=== PATIENT | male | born 1975 | race Caucasian/White ===

== ENCOUNTER 2017-12-08 05:30 | Inpatient (IN) ==
[2017-12-08] MEDS ORDERED: VANCOMYCIN INJ 1,000 MG in SODIUM CHLORIDE 0.9% 250 ML IV ONE (06:00)
[2017-12-08] MEDS ORDERED: FAMOTIDINE 20 MG TABLET PO ONE (06:00)
[2017-12-08] MEDS ORDERED: ceFAZolin 1,000 MG in SYRINGE 1 EACH IV ONE (06:00)
[2017-12-08] MEDS ORDERED: DIAZEPAM 5 MG TABLET PO ONE (06:00)
[2017-12-08] MEDS ORDERED: VANCOMYCIN 1,000 MG VIAL ONE (06:11)
[2017-12-08] MEDS ORDERED: FAMOTIDINE 20 MG TABLET ONE (06:11)
[2017-12-08] MEDS ORDERED: DIAZEPAM 5 MG TABLET ONE (06:11)
[2017-12-08] MEDS ORDERED: ceFAZolin 1,000 MG VIAL ONE (06:11)
[2017-12-08] MEDS: LACTATED RINGERS 1,000 ML IV SCH ×2 (06:45→08:21)
[2017-12-08] MEDS ORDERED: NALOXONE 0.4 MG/ML VIAL IV PRN (07:06)
[2017-12-08] MEDS ORDERED: ONDANSETRON 4 MG/2 ML VIAL IV PRN (07:06)
[2017-12-08] MEDS ORDERED: MAGNESIUM HYDROXIDE SUSP 30 ML UDCUP PO PRN (07:06)
[2017-12-08] MEDS ORDERED: BISACODYL 10 MG SUPP RECTAL PRN (07:06)
[2017-12-08] MEDS ORDERED: LACTULOSE 20 GM/30 ML UDCUP PO PRN (07:06)
[2017-12-08] MEDS ORDERED: DICLOFENAC POTASSIUM 50 MG TABLET PO PRN (07:10)
[2017-12-08] MEDS ORDERED: DEXTROSE 50% 25 GM/50 ML VIAL IV PRN (07:10)
[2017-12-08] MEDS ORDERED: GLUCAGON 1 MG VIAL IM PRN (07:10)
[2017-12-08] MEDS ORDERED: MORPHINE PCA 30 MG/30 ML SYRINGE IV SCH (07:30)
[2017-12-08] MEDS ORDERED: MORPHINE 2 MG/1 ML SYRINGE IV PRN ×2 (08:15→18:06)
[2017-12-08] MEDS ORDERED: DOPamine 800 MG/250 ML PREMIX IV ONE (08:55)
[2017-12-08] MEDS ORDERED: PROPOFOL 1,000 MG/100 ML BOTTLE IV SCH (09:00)
[2017-12-08] MEDS ORDERED: PROPOFOL 1,000 MG/100 ML BOTTLE IV ONE (09:00)
[2017-12-08 09:05] LABS: Apearance,Urine CLEAR (Clear); Bilirubin,Urine Negative (Negative); Blood, Urine Negative (Negative); Glucose,Urine (UA) 50 mg/dL (Negative); Ketones,Urine Negative (Negative); Mucus,Urine Occasional /LPF (Occasional); Nitrite,Urine Negative (Negative); Protein,Urine Negative; RBC,Urine 16 /HPF (0-4); Squamous Epithelial Cell,Urine Occasional /HPF (0-10); Urine Color Yellow (Yellow); Urine Specific Gravity 1.014 (1.001-1.035); Urine Urobilinogen < 2.0 EU/DL (0.2-1.0); WBC,Urine 3 /HPF (0-6)
[2017-12-08] MEDS ORDERED: MIDAZOLAM 2 MG/2 ML VIAL ONE ×2 (09:15→10:02)
[2017-12-08 09:29] LABS: Basophils # 0.1 10*3/uL (0.0-0.2); Basophils % 0.4 % (0.0-0.8); Eosinophils # 0.3 10*3/uL (0.0-0.87); Eosinophils % 2.6 % (0.00-10.9); Hemoglobin 12.5 GM/DL (14.0-18.0); Immature Granulocytes % 1.3 %; Immature Granulocytes Absolute 0.16 #; Lymphocytes # 1.5 10*3/uL (1.4-4.0); Lymphocytes % 12.4 % (21.2-54.2); Mean Corpuscular HGB Conc 32.1 GM/DL (32-36); Mean Corpuscular Hemoglobin 29 PG (27-34); Mean Corpuscular Volume 88.8 FL (87-102); Mean Platelet Volume 10.9 FL (9.6-12.0); Monocytes # 0.8 10*3/uL (0.11-0.8); Monocytes % 6.7 % (1.7-12.7); Neutrophils # 9.3 10*3/uL (1.4-7.4); Neutrophils % 76.6 % (38.7-73.9); Platelet Count 264 T/CUMM (130-400); Red Blood Count 4.39 MC/CUMM (3.8-5.5); Red Cell Distribution Width 13.2 % (9.3-17.3); White Blood Count 12.2 T/CUMM (4-12)
[2017-12-08] MEDS ORDERED: DOPamine 800 MG/250 ML PREMIX IV SCH (09:30)
[2017-12-08] MEDS: INSULIN REGULAR 100 UNIT/ML SUBCUT SCH ×4 (10:00→21:57)
[2017-12-08 10:02] LABS: Alanine Aminotransferase 80 U/L (16-61); Albumin 3.3 G/DL (3.4-5.0); Alkaline Phosphatase 46 U/L (45-117); Aspartate Amino Transferase 76 U/L (0-37); Blood Urea Nitrogen 26 MG/DL (7-18); Calcium 8.6 MG/DL (8.5-10.1); Glucose 189 MG/DL (74-106); Osmolality,Calculated 290.3 MOS/KG (273-304); Potassium 4.5 MMOL/L (3.5-5.1); Sodium 141 MMOL/L (136-145); Total Protein 6.2 G/DL (6.4-8.3)
[2017-12-08] MEDS ORDERED: EPINEPHrine 1 MG/10 ML SYRINGE ONE (10:02)
[2017-12-08] MEDS ORDERED: PROPOFOL 200 MG/20 ML VIAL IV ONE (10:02)
[2017-12-08] MEDS ORDERED: DESFLURANE 1 UNIT/15 MINUTE INH ONE (10:02)
[2017-12-08 10:03] LABS: Troponin I Only 0.047 NG/ML (0.00-0.045)
[2017-12-08] MEDS ORDERED: fentaNYL 100 MCG/2 ML VIAL ONE (10:03)
[2017-12-08] MEDS ORDERED: ONDANSETRON 4 MG/2 ML VIAL ONE (10:03)
[2017-12-08] MEDS ORDERED: ATROPINE 0.4 MG/1 ML VIAL ONE (10:03)
[2017-12-08] MEDS ORDERED: ROCURONIUM 100 MG/10 ML VIAL IV ONE (10:04)
[2017-12-08] MEDS ORDERED: PHENYLEPHRINE 1 MG/10 ML SYRINGE IV ONE (10:04)
[2017-12-08] MEDS ORDERED: GLYCOPYRROLATE 0.4 MG/2 ML VIAL ONE (10:04)
[2017-12-08] MEDS ORDERED: LACTATED RINGERS 1,000 ML IV ONE (10:04)
[2017-12-08] MEDS ORDERED: HEPARIN/NACL 0.9% 2 UNITS/ML 500 ML IV ONE (10:05)
[2017-12-08 10:07] LABS: ABG HCO3 22.8 MMOL/L (20-26); ABG PCO2 48.1 MM HG (35-48); ABG PH 7.317 (7.35-7.45); ABG TCO2 21.8 MMOL/L (23-27)
[2017-12-08] MEDS ORDERED: ePHEDrine 50 MG/ML AMP ONE (10:28)
[2017-12-08] MEDS: SODIUM CHLORIDE 0.9% 1,000 ML IV SCH ×2 (11:13→22:30)
[2017-12-08 11:56] LABS: ABG Base Excess -1.7 MMOL/L (-2.5-2.5); ABG HCO3 23.4 MMOL/L (20-26); ABG Oxygen Saturation 98.9 % (95-100); ABG PH 7.375 (7.35-7.45); ABG PO2 161.1 MM HG (80-95); ABG TCO2 24.7 MMOL/L (23-27)
[2017-12-08] MEDS: INSULIN DEGLUDEC 16 UNIT SUBCUT SCH (12:32)
[2017-12-08] MEDS: glipiZIDE 5 MG TABLET PO SCH ×2 (12:32→16:40)
[2017-12-08] MEDS: DOCUSATE SODIUM 100 MG CAPSULE PO SCH ×2 (12:33→21:20)
[2017-12-08] MEDS: ceFAZolin 2,000 MG in PREMIX 1 EACH IV SCH ×2 (13:57→21:23)
[2017-12-08] MEDS: MORPHINE 2 MG/1 ML SYRINGE IV PRN ×2 (14:00→17:17)
[2017-12-08] MEDS: FONDAPARINUX 2.5 MG/0.5 ML SYRINGE SUBCUT SCH (17:16)
[2017-12-08] MEDS ORDERED: MORPHINE 10 MG/1 ML VIAL IV PRN (18:06)
[2017-12-08] MEDS ORDERED: ACETAMINOPHEN 325 MG TABLET PO PRN (19:39)
[2017-12-08] MEDS ORDERED: LISINOPRIL/HCTZ 10-12.5 MG TABLET PO SCH (21:00)
[2017-12-08] MEDS: rOPINIRole 1 MG TABLET PO SCH (21:20)
[2017-12-08] MEDS: FENOFIBRATE 145 MG TABLET PO SCH (21:21)
[2017-12-08] MEDS: PROPRANOLOL LA 60 MG CAPSULE PO SCH (21:21)
[2017-12-09 04:48] LABS: Basophils % 0.2 % (0.0-0.8); Eosinophils # 0.1 10*3/uL (0.0-0.87); Eosinophils % 1.1 % (0.00-10.9); Hematocrit 34.6 VOL% (42.0-52.0); Hemoglobin 11.2 GM/DL (14.0-18.0); Immature Granulocytes % 0.6 %; Immature Granulocytes Absolute 0.06 #; Lymphocytes # 0.9 10*3/uL (1.4-4.0); Lymphocytes % 9.1 % (21.2-54.2); Mean Corpuscular HGB Conc 32.4 GM/DL (32-36); Mean Corpuscular Hemoglobin 29 PG (27-34); Mean Corpuscular Volume 88.3 FL (87-102); Monocytes # 1.1 10*3/uL (0.11-0.8); Monocytes % 10.9 % (1.7-12.7); Neutrophils # 8.1 10*3/uL (1.4-7.4); Neutrophils % 78.1 % (38.7-73.9); Platelet Count 213 T/CUMM (130-400); Red Blood Count 3.92 MC/CUMM (3.8-5.5); Red Cell Distribution Width 13.3 % (9.3-17.3); White Blood Count 10.3 T/CUMM (4-12)
[2017-12-09 05:19] LABS: Calcium 8.1 MG/DL (8.5-10.1); Osmolality,Calculated 284.3 MOS/KG (273-304); Potassium 4.2 MMOL/L (3.5-5.1)
[2017-12-09] MEDS: glipiZIDE 5 MG TABLET PO SCH ×2 (08:18→17:18)
[2017-12-09] MEDS: INSULIN REGULAR 100 UNIT/ML SUBCUT SCH ×4 (08:18→21:08)
[2017-12-09] MEDS: INSULIN DEGLUDEC 16 UNIT SUBCUT SCH (08:18)
[2017-12-09] MEDS: DOCUSATE SODIUM 100 MG CAPSULE PO SCH ×2 (08:57→21:05)
[2017-12-09 09:05] LABS: Troponin I Only 0.229 NG/ML (0.00-0.045)
[2017-12-09] MEDS: SODIUM CHLORIDE 0.9% 1,000 ML IV SCH ×3 (11:33→21:45)
[2017-12-09] MEDS: FONDAPARINUX 2.5 MG/0.5 ML SYRINGE SUBCUT SCH (17:18)
[2017-12-09] MEDS: rOPINIRole 1 MG TABLET PO SCH (21:05)
[2017-12-09] MEDS: PROPRANOLOL LA 60 MG CAPSULE PO SCH (21:05)
[2017-12-09] MEDS: FENOFIBRATE 145 MG TABLET PO SCH (21:06)
[2017-12-09] MEDS ORDERED: DEXTROSE 50% 25 GM/50 ML VIAL IV PRN (21:47)
[2017-12-09] MEDS ORDERED: GLUCAGON 1 MG VIAL IM PRN (21:47)
[2017-12-10] MEDS: SODIUM CHLORIDE 0.9% 1,000 ML IV SCH (03:13)
[2017-12-10 04:53] LABS: Basophils % 0.3 % (0.0-0.8); Eosinophils # 0.1 10*3/uL (0.0-0.87); Eosinophils % 1.6 % (0.00-10.9); Hematocrit 31.9 VOL% (42.0-52.0); Hemoglobin 10.4 GM/DL (14.0-18.0); Immature Granulocytes % 0.7 %; Immature Granulocytes Absolute 0.06 #; Lymphocytes # 1.1 10*3/uL (1.4-4.0); Lymphocytes % 11.8 % (21.2-54.2); Mean Corpuscular HGB Conc 32.6 GM/DL (32-36); Mean Corpuscular Hemoglobin 29 PG (27-34); Mean Corpuscular Volume 87.6 FL (87-102); Mean Platelet Volume 10.9 FL (9.6-12.0); Monocytes % 11.1 % (1.7-12.7); Neutrophils # 6.7 10*3/uL (1.4-7.4); Neutrophils % 74.5 % (38.7-73.9); Platelet Count 214 T/CUMM (130-400); Red Blood Count 3.64 MC/CUMM (3.8-5.5)
[2017-12-10] MEDS: INSULIN REGULAR 100 UNIT/ML SUBCUT SCH ×4 (08:50→20:47)
[2017-12-10] MEDS: INSULIN DEGLUDEC 16 UNIT SUBCUT SCH (08:51)
[2017-12-10] MEDS: DOCUSATE SODIUM 100 MG CAPSULE PO SCH ×2 (08:51→20:51)
[2017-12-10] MEDS: glipiZIDE 5 MG TABLET PO SCH ×2 (08:52→17:15)
[2017-12-10 13:20] LABS: Troponin I Only 0.035 NG/ML (0.00-0.045)
[2017-12-10 15:29] LABS: Troponin I Only 0.033 NG/ML (0.00-0.045)
[2017-12-10] MEDS: FONDAPARINUX 2.5 MG/0.5 ML SYRINGE SUBCUT SCH (17:17)
[2017-12-10] MEDS: FENOFIBRATE 145 MG TABLET PO SCH (20:50)
[2017-12-10] MEDS: PROPRANOLOL LA 60 MG CAPSULE PO SCH (20:51)
[2017-12-10] MEDS: rOPINIRole 1 MG TABLET PO SCH (20:51)
[2017-12-11 05:29] LABS: Calcium 7.8 MG/DL (8.5-10.1); Osmolality,Calculated 282.1 MOS/KG (273-304); Potassium 3.9 MMOL/L (3.5-5.1)
[2017-12-11 06:01] LABS: Risk Ratio 5.08; VLDL CHOLESTEROL 31.6 MG/DL
[2017-12-11] MEDS: DOCUSATE SODIUM 100 MG CAPSULE PO SCH (08:55)
[2017-12-11] MEDS: INSULIN REGULAR 100 UNIT/ML SUBCUT SCH ×2 (08:56→11:30)
[2017-12-11] MEDS: glipiZIDE 5 MG TABLET PO SCH (08:56)
[2017-12-11] MEDS: INSULIN DEGLUDEC 16 UNIT SUBCUT SCH (09:10)
[2017-12-11 11:32] VITALS: BP 154/72
== END 2017-12-11 12:45 | disposition home health service (06) | DRG 470 ==
LOC: N.SDSINP 05:30 → N.3E 07:51 → N.ICU 09:21 → N.3E 12-09 14:24
PROVIDERS: ADMIT Orthopaedic Surgery; ATTEND Orthopaedic Surgery

== ENCOUNTER 2018-08-12 05:53 | Inpatient (IN) ==
[2018-08-11 14:16] LABS: Basophils % 0.7 % (0.0-0.8); Eosinophils # 0.2 10*3/uL (0.0-0.87); Hematocrit 43.5 VOL% (42.0-52.0); Hemoglobin 14.3 GM/DL (14.0-18.0); Immature Granulocytes % 1.2 %; Immature Granulocytes Absolute 0.07 #; Lymphocytes # 1.2 10*3/uL (1.4-4.0); Lymphocytes % 19.6 % (21.2-54.2); Mean Corpuscular HGB Conc 32.9 GM/DL (32-36); Mean Corpuscular Hemoglobin 28 PG (27-34); Mean Corpuscular Volume 84.8 FL (87-102); Mean Platelet Volume 11.2 FL (9.6-12.0); Monocytes # 0.7 10*3/uL (0.11-0.8); Monocytes % 11.1 % (1.7-12.7); Neutrophils # 3.9 10*3/uL (1.4-7.4); Neutrophils % 64.4 % (38.7-73.9); Platelet Count 245 T/CUMM (130-400); Red Blood Count 5.13 MC/CUMM (3.8-5.5); Red Cell Distribution Width 13.2 % (9.3-17.3)
[2018-08-11 14:35] LABS: Albumin 3.8 G/DL (3.4-5.0); Bilirubin,Total 0.4 MG/DL (0.2-1.0); Calcium 9.2 MG/DL (8.5-10.1); Osmolality,Calculated 285.7 MOS/KG (273-304); Potassium 4.2 MMOL/L (3.5-5.1); Total Protein 7.6 G/DL (6.4-8.3)
[2018-08-12] MEDS ORDERED: cefTRIAXone 1,000 MG in SYRINGE 1 EACH IV ONE (06:00)
[2018-08-12] MEDS ORDERED: cefTRIAXone 1,000 MG VIAL ONE (07:03)
[2018-08-12] MEDS: LACTATED RINGERS 1,000 ML IV SCH ×2 (07:15→09:31)
[2018-08-12] MEDS ORDERED: FAMOTIDINE 20 MG TABLET PO ONE (07:26)
[2018-08-12] MEDS ORDERED: DIAZEPAM 5 MG TABLET PO ONE (07:26)
[2018-08-12] MEDS ORDERED: FAMOTIDINE 20 MG TABLET ONE (08:05)
[2018-08-12] MEDS ORDERED: DIAZEPAM 5 MG TABLET ONE (08:05)
[2018-08-12] MEDS ORDERED: TISSUE ADHESIVE 1 EACH APPLICATOR TOP ONE (10:49)
[2018-08-12] MEDS ORDERED: ROPIVACAINE 0.5% 30 ML VIAL ONE (10:49)
[2018-08-12] MEDS ORDERED: ONDANSETRON 4 MG/2 ML VIAL IV PRN (11:06)
[2018-08-12] MEDS ORDERED: GLUCAGON 1 MG VIAL IM PRN (11:15)
[2018-08-12] MEDS ORDERED: DEXTROSE 50% 25 GM/50 ML VIAL IV PRN (11:15)
[2018-08-12] MEDS ORDERED: MIDAZOLAM 2 MG/2 ML VIAL ONE (11:24)
[2018-08-12] MEDS ORDERED: fentaNYL 100 MCG/2 ML VIAL ONE (11:25)
[2018-08-12] MEDS ORDERED: PROPOFOL 200 MG/20 ML VIAL IV ONE (11:25)
[2018-08-12] MEDS ORDERED: SEVOFLURANE 1 UNIT/15 MINUTE INH ONE (11:25)
[2018-08-12] MEDS ORDERED: ONDANSETRON 4 MG/2 ML VIAL ONE (11:25)
[2018-08-12] MEDS ORDERED: SODIUM CHLORIDE 0.9% 250 ML IV ONE (11:26)
[2018-08-12] MEDS ORDERED: PHENYLEPHRINE 10 MG/1 ML VIAL IV ONE (11:26)
[2018-08-12] MEDS ORDERED: SUCCINYLCHOLINE 200 MG/10 ML VIAL ONE (11:26)
[2018-08-12] MEDS ORDERED: ROCURONIUM 100 MG/10 ML VIAL IV ONE (11:26)
[2018-08-12] MEDS ORDERED: PHENYLEPHRINE 1 MG/10 ML SYRINGE IV ONE (11:26)
[2018-08-12] MEDS ORDERED: LACTATED RINGERS 1,000 ML IV ONE (11:26)
[2018-08-12] MEDS ORDERED: ACETAMINOPHEN 1,000 MG/100 ML VIAL IV ONE (11:26)
[2018-08-12 11:38] LABS: Basophils # 0.1 10*3/uL (0.0-0.2); Basophils % 0.9 % (0.0-0.8); Eosinophils # 0.2 10*3/uL (0.0-0.87); Eosinophils % 2.4 % (0.00-10.9); Hematocrit 40.9 VOL% (42.0-52.0); Hemoglobin 12.8 GM/DL (14.0-18.0); Immature Granulocytes % 1.8 %; Immature Granulocytes Absolute 0.12 #; Lymphocytes % 14.9 % (21.2-54.2); Mean Corpuscular HGB Conc 31.3 GM/DL (32-36); Mean Corpuscular Hemoglobin 28 PG (27-34); Mean Platelet Volume 10.6 FL (9.6-12.0); Monocytes % 14.2 % (1.7-12.7); Neutrophils # 4.4 10*3/uL (1.4-7.4); Neutrophils % 65.8 % (38.7-73.9); Platelet Count 249 T/CUMM (130-400); Red Blood Count 4.65 MC/CUMM (3.8-5.5); Red Cell Distribution Width 13.4 % (9.3-17.3); White Blood Count 6.7 T/CUMM (4-12)
[2018-08-12] MEDS: HYDROmorphone 2 MG/1 ML VIAL IV PRN ×2 (12:28→21:06)
[2018-08-12] MEDS: INSULIN REGULAR 100 UNIT/ML SUBCUT SCH ×2 (12:28→16:47)
[2018-08-12] MEDS: ACETAMINOPHEN 325 MG TABLET PO SCH ×2 (12:29→16:47)
[2018-08-12] MEDS: SODIUM CHLORIDE 0.9% 1,000 ML IV SCH ×2 (12:29→21:30)
[2018-08-12 12:38] LABS: Apearance,Urine CLEAR (Clear); Bacteria,Urine Occasional /HPF (Few); Bilirubin,Urine Negative (Negative); Blood, Urine Small mg/dL (Negative); Glucose,Urine (UA) >=500 mg/dL (Negative); Ketones,Urine Negative (Negative); Nitrite,Urine Negative (Negative); Protein,Urine Negative; RBC,Urine 11 /HPF (0-4); Urine Color Straw (Yellow); Urine Specific Gravity 1.015 (1.001-1.035); Urine Urobilinogen < 2.0 EU/DL (0.2-1.0); WBC,Urine 1 /HPF (0-6)
[2018-08-12] MEDS: oxyCODONE/ACETAMINOPHEN 5-325 MG TABLET PO PRN (15:23)
[2018-08-12] MEDS ORDERED: INSULIN GLARGINE 100 UNIT/ML SUBCUT SCH (21:00)
[2018-08-12] MEDS: rOPINIRole 1 MG TABLET PO SCH (21:07)
[2018-08-12] MEDS: DOCUSATE SODIUM 100 MG CAPSULE PO SCH (21:07)
[2018-08-12] MEDS: PROPRANOLOL LA 60 MG CAPSULE PO SCH (21:07)
[2018-08-13] MEDS: INSULIN REGULAR 100 UNIT/ML SUBCUT SCH ×5 (00:33→21:43)
[2018-08-13] MEDS: oxyCODONE/ACETAMINOPHEN 5-325 MG TABLET PO PRN ×3 (03:21→19:17)
[2018-08-13] MEDS: ACETAMINOPHEN 325 MG TABLET PO SCH ×5 (03:31→21:46)
[2018-08-13] MEDS: SODIUM CHLORIDE 0.9% 1,000 ML IV SCH ×3 (04:26→21:50)
[2018-08-13 04:45] LABS: Basophils % 0.3 % (0.0-0.8); Eosinophils # 0.2 10*3/uL (0.0-0.87); Eosinophils % 1.6 % (0.00-10.9); Hematocrit 35.1 VOL% (42.0-52.0); Immature Granulocytes Absolute 0.09 #; Lymphocytes # 0.9 10*3/uL (1.4-4.0); Lymphocytes % 9.9 % (21.2-54.2); Mean Corpuscular HGB Conc 31.3 GM/DL (32-36); Mean Corpuscular Hemoglobin 28 PG (27-34); Mean Corpuscular Volume 88.2 FL (87-102); Monocytes # 0.9 10*3/uL (0.11-0.8); Monocytes % 9.6 % (1.7-12.7); Neutrophils # 7.3 10*3/uL (1.4-7.4); Neutrophils % 77.6 % (38.7-73.9); Platelet Count 197 T/CUMM (130-400); Red Blood Count 3.98 MC/CUMM (3.8-5.5); Red Cell Distribution Width 13.6 % (9.3-17.3); White Blood Count 9.4 T/CUMM (4-12)
[2018-08-13 04:59] LABS: Calcium 8.1 MG/DL (8.5-10.1); Osmolality,Calculated 284.5 MOS/KG (273-304); Potassium 4.4 MMOL/L (3.5-5.1)
[2018-08-13] MEDS: PANTOPRAZOLE 40 MG TABLET PO SCH (08:43)
[2018-08-13] MEDS: cefTRIAXone 1,000 MG in SYRINGE 1 EACH IV SCH (08:43)
[2018-08-13] MEDS: DOCUSATE SODIUM 100 MG CAPSULE PO SCH (08:43)
[2018-08-13] MEDS: HYDROmorphone 2 MG/1 ML VIAL IV PRN (14:23)
[2018-08-13] MEDS: INSULIN GLARGINE 100 UNIT/ML SUBCUT SCH (21:43)
[2018-08-13] MEDS: rOPINIRole 1 MG TABLET PO SCH (21:44)
[2018-08-13] MEDS: PROPRANOLOL LA 60 MG CAPSULE PO SCH (21:44)
[2018-08-14] MEDS: ACETAMINOPHEN 325 MG TABLET PO SCH ×4 (01:22→17:48)
[2018-08-14] MEDS: DOCUSATE SODIUM 100 MG CAPSULE PO SCH ×3 (04:50→20:00)
[2018-08-14 05:12] LABS: Basophils % 0.3 % (0.0-0.8); Eosinophils # 0.1 10*3/uL (0.0-0.87); Eosinophils % 2.1 % (0.00-10.9); Hematocrit 32.4 VOL% (42.0-52.0); Hemoglobin 10.2 GM/DL (14.0-18.0); Immature Granulocytes % 1.1 %; Immature Granulocytes Absolute 0.07 #; Lymphocytes # 1.1 10*3/uL (1.4-4.0); Lymphocytes % 17.1 % (21.2-54.2); Mean Corpuscular HGB Conc 31.5 GM/DL (32-36); Mean Corpuscular Hemoglobin 28 PG (27-34); Mean Platelet Volume 11.1 FL (9.6-12.0); Monocytes # 0.8 10*3/uL (0.11-0.8); Monocytes % 12.6 % (1.7-12.7); Neutrophils # 4.2 10*3/uL (1.4-7.4); Neutrophils % 66.8 % (38.7-73.9); Platelet Count 186 T/CUMM (130-400); Red Blood Count 3.68 MC/CUMM (3.8-5.5); Red Cell Distribution Width 13.2 % (9.3-17.3); White Blood Count 6.3 T/CUMM (4-12)
[2018-08-14 05:18] LABS: Calcium 7.9 MG/DL (8.5-10.1); Osmolality,Calculated 285.3 MOS/KG (273-304); Potassium 3.9 MMOL/L (3.5-5.1)
[2018-08-14] MEDS: SODIUM CHLORIDE 0.9% 1,000 ML IV SCH ×2 (06:49→17:51)
[2018-08-14] MEDS: INSULIN REGULAR 100 UNIT/ML SUBCUT SCH ×4 (08:33→20:01)
[2018-08-14] MEDS: cefTRIAXone 1,000 MG in SYRINGE 1 EACH IV SCH (08:48)
[2018-08-14] MEDS ORDERED: DIAZEPAM 5 MG TABLET PO ONE (08:59)
[2018-08-14] MEDS ORDERED: fentaNYL 100 MCG/2 ML VIAL IV ONE (08:59)
[2018-08-14] MEDS ORDERED: MIDAZOLAM 2 MG/2 ML VIAL IV ONE (08:59)
[2018-08-14] MEDS: PANTOPRAZOLE 40 MG TABLET PO SCH (09:21)
[2018-08-14] MEDS: HYDROmorphone 2 MG/1 ML VIAL IV PRN ×3 (11:30→19:55)
[2018-08-14] MEDS ORDERED: fentaNYL 100 MCG/2 ML VIAL ONE (12:48)
[2018-08-14] MEDS ORDERED: MIDAZOLAM 2 MG/2 ML VIAL ONE (12:48)
[2018-08-14] MEDS ORDERED: HEPARIN/NACL 0.9% 2 UNITS/ML 2,000 ML IV ONE (12:52)
[2018-08-14] MEDS: oxyCODONE/ACETAMINOPHEN 5-325 MG TABLET PO PRN ×2 (17:49→23:21)
[2018-08-14] MEDS: rOPINIRole 1 MG TABLET PO SCH (19:59)
[2018-08-14] MEDS: PROPRANOLOL LA 60 MG CAPSULE PO SCH (19:59)
[2018-08-14] MEDS: INSULIN GLARGINE 100 UNIT/ML SUBCUT SCH (20:00)
[2018-08-15] MEDS: HYDROmorphone 2 MG/1 ML VIAL IV PRN ×4 (00:29→20:54)
[2018-08-15] MEDS: ACETAMINOPHEN 325 MG TABLET PO SCH ×5 (03:58→20:54)
[2018-08-15] MEDS: oxyCODONE/ACETAMINOPHEN 5-325 MG TABLET PO PRN ×4 (04:57→22:25)
[2018-08-15 05:27] LABS: Basophils % 0.4 % (0.0-0.8); Eosinophils # 0.2 10*3/uL (0.0-0.87); Eosinophils % 2.1 % (0.00-10.9); Hematocrit 33.5 VOL% (42.0-52.0); Hemoglobin 10.5 GM/DL (14.0-18.0); Immature Granulocytes Absolute 0.08 #; Lymphocytes # 0.9 10*3/uL (1.4-4.0); Lymphocytes % 10.9 % (21.2-54.2); Mean Corpuscular HGB Conc 31.3 GM/DL (32-36); Mean Corpuscular Hemoglobin 28 PG (27-34); Mean Corpuscular Volume 88.2 FL (87-102); Mean Platelet Volume 10.7 FL (9.6-12.0); Monocytes % 11.7 % (1.7-12.7); Neutrophils % 73.9 % (38.7-73.9); Platelet Count 201 T/CUMM (130-400); Red Cell Distribution Width 13.2 % (9.3-17.3); White Blood Count 8.1 T/CUMM (4-12)
[2018-08-15 05:55] LABS: Calcium 8.5 MG/DL (8.5-10.1); Osmolality,Calculated 283.4 MOS/KG (273-304); Potassium 4.3 MMOL/L (3.5-5.1)
[2018-08-15] MEDS: SODIUM CHLORIDE 0.9% 1,000 ML IV SCH ×4 (06:15→22:25)
[2018-08-15] MEDS: DOCUSATE SODIUM 100 MG CAPSULE PO SCH ×2 (09:02→20:54)
[2018-08-15] MEDS: PANTOPRAZOLE 40 MG TABLET PO SCH (09:02)
[2018-08-15] MEDS: INSULIN REGULAR 100 UNIT/ML SUBCUT SCH ×4 (09:03→21:42)
[2018-08-15] MEDS: cefTRIAXone 1,000 MG in SYRINGE 1 EACH IV SCH (09:03)
[2018-08-15 16:15] LABS: Stone Source Kidney
[2018-08-15] MEDS: glipiZIDE 5 MG TABLET PO SCH (17:20)
[2018-08-15] MEDS: LACTULOSE 20 GM/30 ML UDCUP PO PRN (18:12)
[2018-08-15] MEDS: rOPINIRole 1 MG TABLET PO SCH (20:53)
[2018-08-15] MEDS: PROPRANOLOL LA 60 MG CAPSULE PO SCH (20:53)
[2018-08-15] MEDS: INSULIN GLARGINE 100 UNIT/ML SUBCUT SCH (21:43)
[2018-08-16] MEDS: ACETAMINOPHEN 325 MG TABLET PO SCH ×6 (01:29→23:00)
[2018-08-16] MEDS: HYDROmorphone 2 MG/1 ML VIAL IV PRN ×3 (03:45→20:29)
[2018-08-16 06:44] LABS: Basophils % 0.2 % (0.0-0.8); Eosinophils # 0.2 10*3/uL (0.0-0.87); Eosinophils % 1.7 % (0.00-10.9); Hemoglobin 9.7 GM/DL (14.0-18.0); Immature Granulocytes % 0.6 %; Immature Granulocytes Absolute 0.07 #; Lymphocytes % 8.8 % (21.2-54.2); Mean Corpuscular HGB Conc 31.3 GM/DL (32-36); Mean Corpuscular Hemoglobin 27 PG (27-34); Mean Corpuscular Volume 87.1 FL (87-102); Mean Platelet Volume 10.6 FL (9.6-12.0); Monocytes # 1.1 10*3/uL (0.11-0.8); Monocytes % 10.2 % (1.7-12.7); Neutrophils # 8.5 10*3/uL (1.4-7.4); Neutrophils % 78.5 % (38.7-73.9); Platelet Count 222 T/CUMM (130-400); Red Blood Count 3.56 MC/CUMM (3.8-5.5); Red Cell Distribution Width 13.2 % (9.3-17.3); White Blood Count 10.8 T/CUMM (4-12)
[2018-08-16] MEDS: SODIUM CHLORIDE 0.9% 1,000 ML IV SCH ×2 (06:53→14:07)
[2018-08-16 07:10] LABS: Calcium 7.9 MG/DL (8.5-10.1); Osmolality,Calculated 282.3 MOS/KG (273-304); Potassium 4.3 MMOL/L (3.5-5.1)
[2018-08-16] MEDS: glipiZIDE 5 MG TABLET PO SCH ×2 (08:02→16:36)
[2018-08-16] MEDS: PANTOPRAZOLE 40 MG TABLET PO SCH (08:02)
[2018-08-16] MEDS: DOCUSATE SODIUM 100 MG CAPSULE PO SCH ×2 (08:02→20:34)
[2018-08-16] MEDS: INSULIN REGULAR 100 UNIT/ML SUBCUT SCH ×3 (08:02→16:35)
[2018-08-16] MEDS: cefTRIAXone 1,000 MG in SYRINGE 1 EACH IV SCH (08:03)
[2018-08-16] MEDS: oxyCODONE/ACETAMINOPHEN 5-325 MG TABLET PO PRN (08:11)
[2018-08-16] MEDS: LACTULOSE 20 GM/30 ML UDCUP PO PRN ×2 (14:29→20:34)
[2018-08-16] MEDS: PROPRANOLOL LA 60 MG CAPSULE PO SCH (20:34)
[2018-08-16] MEDS: rOPINIRole 1 MG TABLET PO SCH (20:34)
[2018-08-17] MEDS: INSULIN GLARGINE 100 UNIT/ML SUBCUT SCH (03:51)
[2018-08-17] MEDS: INSULIN REGULAR 100 UNIT/ML SUBCUT SCH ×3 (03:51→13:10)
[2018-08-17] MEDS: oxyCODONE/ACETAMINOPHEN 5-325 MG TABLET PO PRN (04:22)
[2018-08-17 06:24] LABS: Basophils % 0.2 % (0.0-0.8); Eosinophils # 0.2 10*3/uL (0.0-0.87); Hematocrit 32.5 VOL% (42.0-52.0); Hemoglobin 10.3 GM/DL (14.0-18.0); Immature Granulocytes % 1.1 %; Immature Granulocytes Absolute 0.11 #; Lymphocytes # 0.9 10*3/uL (1.4-4.0); Lymphocytes % 9.1 % (21.2-54.2); Mean Corpuscular HGB Conc 31.7 GM/DL (32-36); Mean Corpuscular Hemoglobin 27 PG (27-34); Mean Corpuscular Volume 86.4 FL (87-102); Mean Platelet Volume 11.6 FL (9.6-12.0); Monocytes # 1.1 10*3/uL (0.11-0.8); Monocytes % 10.2 % (1.7-12.7); Neutrophils % 77.4 % (38.7-73.9); Platelet Count 235 T/CUMM (130-400); Red Blood Count 3.76 MC/CUMM (3.8-5.5); Red Cell Distribution Width 13.2 % (9.3-17.3); White Blood Count 10.3 T/CUMM (4-12)
[2018-08-17 06:41] LABS: Calcium 8.5 MG/DL (8.5-10.1); Osmolality,Calculated 276.5 MOS/KG (273-304)
[2018-08-17] MEDS: ACETAMINOPHEN 325 MG TABLET PO SCH ×2 (06:43→13:10)
[2018-08-17 08:07] VITALS: BP 125/64
[2018-08-17] MEDS: PANTOPRAZOLE 40 MG TABLET PO SCH (08:30)
[2018-08-17] MEDS: DOCUSATE SODIUM 100 MG CAPSULE PO SCH (08:30)
[2018-08-17] MEDS: cefTRIAXone 1,000 MG in SYRINGE 1 EACH IV SCH (08:38)
[2018-08-17] MEDS: glipiZIDE 5 MG TABLET PO SCH (10:42)
[2018-08-17] MEDS: SODIUM CHLORIDE 0.9% 1,000 ML IV SCH (13:10)
== END 2018-08-17 13:35 | disposition home or self-care (01) | DRG 908 ==
LOC: N.RAD 05:53 → N.5E 05:53 → N.SDSINP 05:56 → N.5E 08:41
PROVIDERS: ADMIT Surgery; ATTEND Surgery